=== PATIENT | female | born 1950 | race Caucasian/White ===

== ENCOUNTER 2017-01-20 13:36 | Outpatient (CLI) | payer OTHER ==
[~2017-01-20 13:36] MED LIST: ASPIRIN EC81 MG; ATIVAN1 MG PO; COREG12.5 MG PO; DSS100 MG PO; GLIMEPIRIDE1 MG PO; GLUCOSAMINE CHONDR; GLUCOSAMINE500 MG; HYCET1 ML PO; IBUPROFEN400 MG PO; LEVOTHYROXINE100 MCG PO; LISINOPRIL/HYDR1 TAB; METFORMIN HCL500 MG PO; NEURONTIN300 MG PO; PROBIOTI1 PO; SERTRALINE HCL50 MG PO; ZOLOFT50 MG PO
--- NOTE | 2017-01-20 14:02 | DIAGNOSTIC IMAGING REPORT ---
PROCEDURE: MG BILATERAL SCREENING W/CAD INDICATION: Screening, personal history of left breast cancer status post radiation treatment. TECHNIQUE: Standard CC and MLO views bilaterally. Computer aided detection was used. COMPARISON: 01/15/2016, 01/12/2016, 02/04/2015 FINDINGS: Heterogeneous, moderately dense fibroglandular tissue is present bilaterally. There are surgical clips and architectural distortion in the upper outer quadrant of the left breast. Interval resolution of tiny cystic structure posteriorly in the right breast. Slight skin thickening of the lateral breast. No developing densities, areas of architectural distortion, or suspicious microcalcifications. IMPRESSION: 1. Stable mammograms without radiographic evidence of malignancy. RESULT CODE: 2- Benign findings. A. A negative report should not delay biopsy if a dominant or clinically suspicious mass is present. 10-15% of cancers are not identified by x-ray. B. A negative report may reinforce clinical impression. C. Adenosis and dense breasts may obscure an underlying neoplasm. D. False positive reports average 6-10%. E.. A yearly screening mammogram is recommended. A reminder letter will be scheduled.
== END 2017-01-20 23:00 ==
LOC: MAM SRH 13:36
DX: Z12.31 Encounter for screening mammogram for malignant neoplasm of breast (principal); Z85.3 Personal history of malignant neoplasm of breast